=== PATIENT | female | born 1955 | race Caucasian/White ===

== ENCOUNTER → 2020-06-09 12:16 | Outpatient (BNVA) | payer MEDICARE, SELFPAY | PROVIDERS: PCP Internal Medicine; Visit Provider Anesthesiology | DX: G89.4 Chronic pain syndrome (principal); N94.818 Other vulvodynia; M79.609 Pain in unspecified limb | CPT/HCPCS: 99212 ==

== ENCOUNTER 2020-07-01 08:12 | Day surgery (SDC) | payer MEDICARE, SELFPAY ==
[2020-06-27 11:48] VITALS: BMI 23.6
--- NOTE | 2020-06-30 08:59 | HO.ANESPROP2 ---
Documented by User: Disha Mcney 06/30/20 09:04 HPI - Anesthesia Eval Consult details Narrative: 65yo F for Intrathecal Drug Delivery Implant PMFSH Past Medical History Medical History Chronic pain syndrome Idiopathic vulvodynia Maxillary sinus cyst Pain in unspecified limb Vulvodynia Surgical History Surgical History History of Hx of exploratory laparotomy Social History Social History Are you a primary career professional to a significant other at home: No Do you presently have visiting nurse or other home services: No Smoking Status: Never smoker Use of substances other than those prescribed or required for medical reasons: No Have you been hit, kicked, punched, or otherwise hurt by someone within the past year? If so, by whom?: No Advance Directives: No Advance Directives Information Provided: No Advance Directives on File: No Meds Allergies Allergy/AdvReac Type Severity Reaction Status Date / Time No Known Allergies Allergy Verified 07/01/20 08:20 Home Medications Medication Instructions Recorded Confirmed Type zolpidem 1 tab PO BEDTIME PRN 06/27/20 06/27/20 History Probiotic PO DAILY 07/01/20 History Exam Exam Date and Time: June 30, 2020 0859 Height,Weight and Vital Signs: Height 5 ft 5 in Weight 64.41 kg Assessment and Plan Assessment Anesthesia Assessment: Chart Reviewed Documented by User: Luis Silva MD 07/01/20 09:39 FOR[facility]LY [facility], [facility] Past Medical History Medical History Chronic pain syndrome Idiopathic vulvodynia Maxillary sinus cyst Pain in unspecified limb Vulvodynia Surgical History Surgical History History of Hx of exploratory laparotomy Social History Social History Are you a primary career professional to a significant other at home: No Do you presently have visiting nurse or other home services: No Smoking Status: Never smoker Use of substances other than those prescribed or required for medical reasons: No Have you been hit, kicked, punched, or otherwise hurt by someone within the past year? If so, by whom?: No Advance Directives: No Advance Directives Information Provided: No Advance Directives on File: No Meds Allergies Allergy/AdvReac Type Severity Reaction Status Date / Time No Known Allergies Allergy Verified 07/01/20 08:20 Home Medications Medication Instructions Recorded Confirmed Type zolpidem 1 tab PO BEDTIME PRN 06/27/20 06/27/20 History Probiotic PO DAILY 07/01/20 History Exam Airway Mallampati Class: I TM Dist: >3cm Neck ROM: Full Loose/Missing/Broken Teeth: No Heart: rrr Lungs: nl Other: ao Assessment and Plan Assessment Anesthesia Assessment: Anesthesia Plan Discussed and Chart Reviewed Final Anesthetic Review NPO: Yes ASA Class: II Final Preanesthetic Review: No Changes in Pt Med Stat, Meds/Allgs Chart Reviewed, Consent Obtained/Reviewed and Anes Risks/Benef Reviewed Patient Risk: Intermediate Procedure Risk: Low Anesthetic Plan Anesthetic Plan: GA Disposition: Standard PACU
[2020-07-01] VITALS (14 sets, daily range): BP systolic 96–132; BP diastolic 50–77; PULSE 68–83; RESP 16–18; TEMP 36.1–37.1; O2SAT 97–100
--- NOTE | 2020-07-01 07:48 | MHC.SHP ---
Pre-Procedural Eval Section B Chief Complaint: Vulvodynia, Chronic Pain Details of Present Illness: Significant pelvic pain and vulvodynia significant pain related to widespread polyneuropathy. Relevant Family History (Specify if Yes): No Relevant Social History: Other (specify) ( Unknown) Present Medications: see Short Stay Collaborative assessment Medical History: No relevant PMH ( ) History of Previous Operations: No relevant previous surgery Allergies: Allergies Allergy/AdvReac Type Severity Reaction Status Date / Time No Known Allergies Allergy Verified 06/27/20 11:35 Plan Patient has been examined and remains a candidate for the planned procedure
--- NOTE | 2020-07-01 07:50 | P.OP_ITS ---
Operative Note Operative Note Date of Service: 07/01/20 Narrative: Risks benefits side effects of intrathecal drug delivery system pain pump implantation were discussed before the surgery with the patient. Informed consent was obtained. She is not taking any NSAIDs currently. The patient came to the operating room on the stretcher, ASA monitors were applied . The general anesthesia was induced patient was transfered prone on the OR table. All PP were protected, padded. Time-out was performed delineating correct site side of the procedure, risk of fire, need of antibiotics risk of DVT, administration of the local anesthetic with doses and concentrations. the patient's entire back was prepped with chloroprep and draped with full body drape including ioban film. Sterilely drape C-arm was brought over the OR field and square pictures of the L1, L2, L3 vertebrae were demonstrated on the screen, the positions of the patient SCS leads were noted. the entrance point for the catheter was chosen as the L2-L3 interspace. In the left paramedian fashion 1 cm away from the midline to the left 5 cm vertical skin incision was made with #10 scalpel. The incision was widened with the wheatlander retractors and deepened with electrocautery. Thorough hemostasis was obtained using electrocautery and 3-0 polisorb sutures. the prevertebral fascia was freed from overlaying tissues. After that 100 mm introducer spinal 18 g needle was incerted under x-ray guidance in the projection of the LEFT L3 pedicle. The needle advanced under the x-ray guidance with intemitteny A-P and lateral pictures toward the spinal canal. When on the lateral view the needle entered the spinal canal the stylet was removed and the clear flow of the CSF was obtain through the needle hub. Intrathecal Ascenda catheter was inserted through the needle and advanced under the x-ray guidance toward the T10 vertebral body projection.Attempts to advance the catheter higher were met with resistance and the catheter was bending. the decision was made to leave the catheter at T10 pos ition. The stylet was removed from the catheter and clear flow of CSF fluid straw colored and clear was observed coming from the catheter. Pursestring suture using Tycron 2.0 was used to surround the entrance point of the needle. And pursestring suture after that was tied. The needle was withdrawn from the tissues care was taken to not to dislodge the tip of the catheter from the T10 position. Anchoring device was dislodged on the body of the catheter and advanced to were the prevertebral fascia. It was dislodged on the body of the catheter and then anchoring device was sutured with 4 interrupted Tycron sutures to the prevertebral fascia. After that the thorough irrigation of the wound was performed and wound was packed with bacitracin soaked 4 x 4. Attention then was concentrated on the patient's right buttock. Sterilely draped C-arm was brought over the operative feel again and position of the patient's iliac crest on the right was demonstrated on the screen. 2 cm below the projection of the iliac crest to the skin of the local anesthetic bupivacaine was injected in the linear horizontal fashion. After that Nine cm incision was performed in patient's right buttock alongside the injected line. Thorough hemostasis was obtained using cautery device. After that the wound was widened and made 2.5 cm deep until the muscular fascia was seen. The wound was extended medially and laterally as well as caudally and cranially to form the space to accommodate the pump. Thorough hemostasis was performed. The wound was irrigated with bacitracin containing normal saline and then epidural introducer needle was used to connect both wounds and dislodge the intrathecal catheter into the side wound. The catheter was trimmed appropriately after that and sutureless connection device was mounted on the catheter. After that sutureless connection device was connected to the pump. Aspiration of the side port of the pump revealed clear flow of CSF. Two anchoring 0-0 etibone sutures were applied in most superior medial superior lateral and inferior lateral corners of the wound . After that the sutures were connected to the break it is on the body of the pump, intrathecal catheter was gathered behind the body of the pump and pump was dislodged into the wound. After that the anchoring sutures were tied. Thorough irrigation was performed again in both wounds. Thorough hemostasis was verified. 0 polisorb sutures were used to close both wounds, 2-0 suture of the same nature were used to approximate the skin. nylon 3.0 sutures were applied to the skin line Steri-Strips were applied to suture lines with the mastisol glue. Sterile dressing with sterile 4x4s was performed, abdominal binder was applied. Upon completion of the procedure patient was awaken extubated and taken outside of the operating room to recovery room where SHE recovered uneventfully. SHE went home without immediate complication.
--- NOTE | 2020-07-01 08:02 | PM.OP ---
Brief Operative Note Date of Service: 07/01/20 Procedure: implantation of ITDD Implants: Ascenda catheter and SynchroMed 2 pain pump Surgeon: Sedrick Reddy MD Anesthesia: GETA Estimated blood loss (mL): 50 Pathology: none sent Condition: stable Disposition: PACU
--- NOTE | 2020-07-01 08:06 | MHC.SHP ---
Pre-Procedural Eval Section B Chief Complaint: Vulvodynia, Chronic Pain Details of Present Illness: pelvic pain, chronic pain syndrome, vulvodynia. Relevant Family History (Specify if Yes): No Relevant Social History: None Present Medications: see Short Stay Collaborative assessment Medical History: No relevant PMH History of Previous Operations: No relevant previous surgery Allergies: Allergies Allergy/AdvReac Type Severity Reaction Status Date / Time No Known Allergies Allergy Verified 06/27/20 11:35 Review of Systems Sugical H&P ROS: Negative: Constitution, Cardiovascular, Respiratory, Neurological, Psychiatric, Hem-Onc, Allergic/Immunologic, Gastrointestinal, Genitourinary, Musculoskeletal, Integumentary, Endocrine and Eyes/Ears/Nose/Throat Exam Surgical H&P Exam: Normal: HEENT, Normal: Heart, Normal: Lungs, Normal: Extremities, Normal: Abdomen, Normal: Skin and Normal: Neurological Plan Diagnosis/Plan: Unchanged Patient has been examined and remains a candidate for the planned procedure
--- NOTE | 2020-07-01 08:12 | FL_ITS ---
EXAMINATION: XR FLUOROSCOPY WITH IMAGES CLINICAL INFORMATION: Intrathecal drug delivery implant COMPARISON: Fluoroscopic spot views lumbar spine 04/05/2020. TECHNIQUE: Fluoroscopy performed by Dr. Sedrick Reddy. Fluoroscopy time: 0.4 minutes DAP: 4.74 Gycm2 Images: 3 FINDINGS: There is catheter or guidewire overlying the lower thoracic spinal canal with tip at level of T10. FL/FL guidance in OR IMPRESSION: Fluoroscopy for pain management procedure.
[2020-07-01] MEDS: Lactated Ringers 1,000 ML 100 ML IVCONT (08:40)
[2020-07-01] MEDS: ondansetron HCL 4 MG/2 ML VIAL IVPUSH (12:10)
[2020-07-01] MEDS: HYDROmorphone HCl 0.5 MG/0.5 ML SYRINGE 0.25 MG IVPUSH (12:48)
--- NOTE | 2020-07-01 14:36 | HO.POSTANES ---
Post Anesthesia Evaluation Post Anesthesia Evaluation Vital Signs: Vital Signs Temp Pulse Resp BP Pulse Ox 07/01/20 13:18 97.0 F 81 18 110/65 99 07/01/20 13:07 82 18 129/57 L 99 07/01/20 12:52 83 18 105/56 L 97 07/01/20 12:48 18 07/01/20 12:36 68 18 96/58 L 99 07/01/20 12:21 74 18 100/56 L 100 07/01/20 12:06 77 18 116/67 100 07/01/20 12:01 79 16 107/69 100 07/01/20 11:56 77 18 110/50 L 100 07/01/20 11:51 80 18 103/63 100 07/01/20 11:49 97.0 F 82 16 108/70 99 07/01/20 08:22 98.7 F 81 16 132/77 98 Anesthesia: General Endotracheal-GETA Mental Status: Awake Pain Control: Satisfactory Nausea/Vomiting: None Hydration: Adequate Anesthesia-Related Issues: No Anes. Related Issues
== END 2020-07-01 14:30 | disposition home or self-care (01) ==
PROVIDERS: PCP Internal Medicine; Visit Provider Anesthesiology
PROC: (CPT 62350; principal; 2020-07-01 09:00)
DX: N94.818 Other vulvodynia (principal); G89.4 Chronic pain syndrome; M79.605 Pain in left leg; M79.604 Pain in right leg
CPT/HCPCS: 62350; 62362; C1772; J0131; J0690; J1170; J2250; J2405; J3010; J3370

== ENCOUNTER → 2020-07-06 11:58 | Outpatient (BNVA) | payer MEDICARE, SELFPAY | PROVIDERS: PCP Internal Medicine; Referring Provider Internal Medicine; Visit Provider Anesthesiology | DX: N94.819 Vulvodynia, unspecified (principal); G89.4 Chronic pain syndrome; G97.1 Other reaction to spinal and lumbar puncture; M79.609 Pain in unspecified limb | CPT/HCPCS: 99212 ==

== ENCOUNTER 2020-07-12 06:41 | Outpatient (REF) | payer MEDICARE, SELFPAY ==
--- NOTE | 2020-07-12 13:17 | MR_ITS ---
EXAMINATION: MR THORACIC SPINE WITHOUT AND WITH CONTRAST CLINICAL INFORMATION: Meningitis. Pain pump placed 10 days prior. Nausea. Headache. COMPARISON: None available. TECHNIQUE: MRI of the thoracic spine was obtained using routine sequences following the administration of 6.5 mL of Gadavist intravenous contrast. FINDINGS: Minimal degenerative stepwise anterolistheses from T2-T5. Otherwise, normal anatomic alignment. There are enhancing T2 hyperintense lesions within the T9 and T10 vertebral bodies as well as the T9 left-sided lamina. Minimal intrinsic T1 shortening associated with the lesion in the T10 vertebral body. Mild to moderate degenerative disc disease from T3-T11. Associated mixed Modic type discogenic endplate changes including minimal Modic type I discogenic edema at T3-T4, T4-T5, T5-T6, and T8-T9. No additional suspicious marrow edema/enhancement. The vertebral body heights are largely maintained. No significant abnormalities of the thoracic spinal cord. The conus medullaris terminates at the level of L2. No demonstrated subdural/epidural collection. Mild subcutaneous soft tissue edema of the lumbar spine. No demonstrated paraspinal soft tissue fluid collection. Otherwise, no significant abnormalities of the paraspinal musculature. Trace right-sided pleural effusion. Otherwise, limited evaluation of the intrathoracic structures without significant abnormalities. Dependently layering gallstones without demonstrated pericholecystic inflammation. There is a nonenhancing 4 cm T2 hyperintense cyst in the right hepatic lobe. Bilateral subcentimeter T2 hyperintense renal cysts. The descending thoracic aorta is of normal contour and caliber. No cerebellar tonsils appear normally positioned on plant puller imaging. AXIAL SPINAL LEVELS: Minimal posterior disc herniations throughout the thoracic spine. Moderate degenerative facet arthropathy of the lower thoracic spine. No evidence of spinal canal or neural foraminal stenosis. MR/MR thoracic spine wo/w con IMPRESSION: 1. Mild multilevel degenerative spondyloarthropathy of the thoracic spine. No spinal canal or neural foraminal stenosis. No demonstrated epidural/subdural collection. No demonstrated intrathecal abnormal enhancement. 2. There are nonspecific, intraosseous, enhancing lesions at T9 and T10. A small amount of intrinsic T1 shortening within the lesion at T10 indicates that these may represent atypical hemangiomas. However, these lesions are not fully characterized on this exam. Correlation with prior imaging if available would help to determine the chronicity of these lesions. Otherwise, follow-up is recommended to establish stability. Nuclear medicine bone scan could be considered to exclude the possibility of additional osseous lesions.
[2020-07-12 13:35] LABS: MANUAL DIFF FLAG NO
[2020-07-12 13:37] LABS: Alanine Aminotransferase 22 U/L (0-31); Albumin Level 4.3 g/dL (3.5-5.0); Alkaline Phosphatase 59 U/L (39-117); Anion Gap 12 (12-20); Aspartate Amino Transferase 17 U/L (5-31); Bilirubin Total 0.4 mg/dL (0.0-1.0); Blood Urea Nitrogen 16 mg/dL (9-16); C Reactive Protein 0.25 mg/dL (< or = 0.50); Calcium 9.5 mg/dL (8.4-10.2); Carbon Dioxide 29 mmol/L (22-29); Chloride 104 mmol/L (96-108); Estimated Glomerular Filt Rate > 60; Glucose Random 105 mg/dL (60-115); Potassium 4.3 mmol/l (3.3-5.1); Sodium 141 mmol/L (135-145)
[2020-07-12 13:48] LABS: Basophils Percent Auto 0.5 % (0-2); Eosinophils Absolute Auto 0.1 X10*3/uL (0.0-0.4); Eosinophils Percent Auto 1.3 % (0-4); Hemoglobin 12.7 g/dl (12.0-16.0); Imm Gran Abs Auto 0.02 X10*3/uL (0.00-0.03); Imm Gran Pct Auto 0.3 % (0.0-0.4); Lymphocytes Absolute Auto 2.4 X10*3/uL (1.2-4.9); Lymphocytes Percent Auto 38.7 % (20-40); Mean Corpuscular HGB Conc 33.4 g/dl (31.0-35.0); Mean Corpuscular Hemoglobin 29.8 pg (27.0-33.0); Mean Corpuscular Volume 89.2 fL (80-98); Monocytes Absolute Auto 0.5 X10*3/uL (0.1-1.2); Monocytes Percent Auto 7.6 % (2-11); Neutrophils Absolute Auto 3.1 X10*3/uL (2.0-8.3); Neutrophils Percent Auto 51.6 % (45-73); Platelet Count 414 X10*3/uL (160-400); Red Blood Count 4.26 X10*6/uL (4.20-5.50); Red Cell Distribution Width 12.5 % (11.0-16.0); White Blood Count 6.1 X10*3/uL (4.8-10.8)
[2020-07-12 14:34] LABS: Erythrocyte Sedimentation Rate 9 MM/HR (0-20)
--- NOTE | 2020-07-12 14:57 | FL_ITS ---
EXAMINATION: XR FLUOROSCOPY WITH IMAGES CLINICAL INFORMATION: G89.4 - Chronic pain syndrome COMPARISON: Fluoroscopic spot views spine 07/01/2020, 04/05/2020 TECHNIQUE: Fluoroscopy performed by Mela Cox NP. Fluoroscopy time: 0.1 minutes DAP: 0.8 Gycm2 Images: 1 FINDINGS: There is a pump device overlying the right iliac crest. FL/FL guidance in treatment room IMPRESSION: Fluoroscopy for pain management procedure.
== END 2020-07-12 23:59 | disposition home or self-care (01) ==
LOC: HO.MRI 06:41
PROVIDERS: Visit Provider Anesthesiology
DX: N94.819 Vulvodynia, unspecified (principal); G89.4 Chronic pain syndrome; G03.9 Meningitis, unspecified; R32 Unspecified urinary incontinence; R33.8 Other retention of urine; M54.5 Low back pain; Z97.8 Presence of other specified devices
CPT/HCPCS: 36415; 62370; 72157; 80053; 85025; 85652; 86140; 87015; 87070; 87071; 87205; 99212; A9585; Q9967

== ENCOUNTER → 2020-07-14 11:28 | Outpatient (BNVA) | payer MEDICARE, SELFPAY | PROVIDERS: PCP Internal Medicine; Referring Provider Internal Medicine; Visit Provider Anesthesiology | DX: N94.819 Vulvodynia, unspecified (principal); G89.4 Chronic pain syndrome; M79.609 Pain in unspecified limb | CPT/HCPCS: Q3014 ==

== ENCOUNTER 2020-07-18 14:58 | Emergency (ER) | payer MEDICARE, SELFPAY ==
[2020-07-18 15:06] VITALS: BP 134/92; PULSE 85; RESP 18; TEMP 36.8; O2SAT 98; BMI 23.3
== END 2020-07-18 19:15 | disposition left against medical advice (07) ==
PROVIDERS: Emergency Provider Internal Medicine; PCP Internal Medicine
DX: R51.9 Headache, unspecified (principal)
CPT/HCPCS: 99282

== ENCOUNTER 2020-07-20 15:28 | Outpatient (REF) | payer MEDICARE, SELFPAY ==
--- NOTE | 2020-07-20 15:34 | CT_ITS ---
EXAMINATION: CT LUMBAR SPINE WITH CONTRAST CLINICAL INFORMATION: Infection/inflammatory reaction of prosthetic device. COMPARISON: None available. TECHNIQUE: Multidetector helical imaging of the lumbar spine was obtained following the administration of 85 mL Omnipaque 350 intravenous contrast. Multiple axial reformats and coronal/sagittal reconstructions were created the technologist workstation for review. DLP: 817 mGy-cm FINDINGS: Subcutaneous pump with microcatheter entering the spinal canal at the level of L2-L3 directed superiorly along the left lateral aspect of the canal. Minimal degenerative grade 1 anterolisthesis of L3 on L4. Otherwise, normal anatomic alignment. No evidence of acute fracture or traumatic subluxation. The vertebral body heights are maintained. Moderate degenerative disc disease at L3-L4. Mild loss of disc height at L2-L3 and L4-L5. No suspicious lytic or sclerotic osseous lesions. No demonstrated evidence of epidural collection. Prominent Tarlov cysts at the level of S3. Mild subcutaneous soft tissue edema in the soft tissues of the lower back along the catheter tract without demonstrated discrete fluid collection. Otherwise, no abnormalities of the paraspinal musculature. Limited evaluation of the intra-abdominal structures is notable for a 4.2 x 3.2 cm cyst in the right hepatic lobe. Multiple small hypoattenuating lesions in both kidneys. 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 The remaining lesions are subcentimeter are too small to fully characterize by CT. No additional significant abnormalities of the intra-abdominal structures. Small bilateral fat-containing inguinal hernias. The abdominal aorta is of normal contour and caliber. AXIAL SPINAL LEVELS: L1-L2: Shallow diffuse disc bulge. There is mild bilateral facet joint arthropathy. There is no neural foraminal stenosis. There is no demonstrated spinal canal stenosis. L2-L3: Mild to moderate diffuse disc bulge. There is moderate bilateral facet joint arthropathy. There is mild bilateral neural foraminal stenosis. There is no demonstrated spinal canal stenosis. L3-L4: Moderate diffuse disc bulge. There is moderate to severe bilateral facet joint arthropathy. There is moderate bilateral neural foraminal stenosis. There appears to be moderate spinal canal stenosis exacerbated by prominent dorsal epidural lipomatous tissue. L4-L5: Moderate diffuse disc bulge. There is severe bilateral facet joint arthropathy. There is mild bilateral neural foraminal stenosis. There appears to be mild spinal canal stenosis exacerbated by prominent dorsal epidural lipomatous tissue. L5-S1: Mild diffuse disc bulge. There is severe right and mild left facet joint arthropathy. There is mild right and no left neural foraminal stenosis. There is no demonstrated spinal canal stenosis. CT/CT lumbar spine w con IMPRESSION: A catheter related to a subcutaneous pump system enters the spinal canal the level of L2-L3 and courses superiorly along the left lateral aspect of the spinal canal. No demonstrated epidural collection. Mild subcutaneous edema along the tract of the catheter without demonstrated discrete collection. No acute fracture or traumatic subluxation of the lumbar spine. Moderate multilevel degenerative spondyloarthropathy of the lumbar spine as described in detail above. Most notably on this limited exam without intrathecal contrast, there appears to be moderate L3-L4 and mild L4-L5 spinal canal stenoses. Moderate neural foraminal stenosis at L3-L4.
[2020-07-20] MEDS: iohexoL 350 MG/ML 100 ML INFUS..BTL IV (16:19)
== END 2020-07-20 15:29 | disposition home or self-care (01) ==
LOC: HO.CT 15:28
PROVIDERS: PCP Internal Medicine; Visit Provider Nurse Practitioner Family
DX: R51.9 Headache, unspecified (principal); T85.79XA Infection and inflammatory reaction due to other internal prosthetic devices, implants and grafts, initial encounter
CPT/HCPCS: 72132; Q9967

== ENCOUNTER → 2020-08-01 08:30 | Outpatient (BNVA) | payer MEDICARE, SELFPAY | PROVIDERS: PCP Internal Medicine; Visit Provider Anesthesiology | DX: N94.818 Other vulvodynia (principal); G89.4 Chronic pain syndrome; M79.609 Pain in unspecified limb | CPT/HCPCS: Q3014 ==

== ENCOUNTER 2020-08-02 15:29 | Outpatient (REF) | payer MEDICARE, SELFPAY | END 2020-08-02 15:30 | disposition home or self-care (01) | LOC: HO.RADIR 15:29 | PROVIDERS: Visit Provider Anesthesiology | DX: N94.818 Other vulvodynia (principal); G89.4 Chronic pain syndrome; M79.609 Pain in unspecified limb | CPT/HCPCS: 62370; Q3014 ==

== ENCOUNTER → 2020-08-10 11:59 | Outpatient (BNVA) | payer MEDICARE, SELFPAY | PROVIDERS: PCP Internal Medicine; Visit Provider Anesthesiology | DX: G89.4 Chronic pain syndrome (principal); N94.818 Other vulvodynia | CPT/HCPCS: 62368; 99211 ==

== ENCOUNTER 2020-08-16 05:26 | Outpatient (REF) | payer MEDICARE, SELFPAY ==
--- NOTE | 2020-08-16 11:43 | FL_ITS ---
EXAMINATION: FLUOROSCOPY AND CT THORACIC MYELOGRAM CLINICAL INFORMATION: Chronic pain syndrome. COMPARISON: CT lumbar spine 07/20/2020. TECHNIQUE: A single fluoroscopy image was obtained of the thoracolumbar spine. Intrathecal contrast was injected by Dr. Sedrick Reddy and axial 3 mm images of thoracic spine were obtained from C7 vertebra to L2 vertebra. Subsequently 2 mm thin coronal and sagittal images of thoracic spine were obtained. FINDINGS: On the sagittal reconstructed images there is maintained thoracic kyphosis. The vertebral heights and alignment are normal. There is minimal loss of disc height throughout the thoracic spine with mild ventral spondylosis and mid and lower dorsal spine. The upper thoracic spine thecal sac is not well opacified. The mid and lower thoracic thecal sac is well opacified. The cord caliber is normal within the mid and lower dorsal spine. The conus appears normal terminating at the L1-L2 disc level. There is a small microcatheter extending through the left thecal sac at the L2 through T11 vertebra where it swings posteriorly and to the right. The catheter terminates at T10 vertebra. The thecal sac is capacious within the mid and lower thoracic spine. No lytic or sclerotic process seen. Visualized lung bases are clear. The paravertebral soft tissues are normal. The visualized lung bases are clear. FL/FL myelogram spine thoracic IMPRESSION: Opacified mid and lower thoracic thecal sac is capacious with normal size cord. Microcatheter inserted from the lower lumbar spine not in the [id number] terminates at T10 vertebra. There is no compromise of the thecal sac or any soft tissue mass at the tip of the microcatheter. No lytic or sclerotic process seen.
== END 2020-08-16 05:27 | disposition home or self-care (01) ==
LOC: HO.RADIR 05:26
PROVIDERS: Visit Provider Anesthesiology
DX: G89.4 Chronic pain syndrome (principal); N94.818 Other vulvodynia; G03.9 Meningitis, unspecified
CPT/HCPCS: 62303; Q9967

== ENCOUNTER 2020-08-16 09:16 | Day surgery (SDC) | payer MEDICARE, SELFPAY ==
[2020-08-16 10:14] VITALS: BMI 23.3
[2020-08-16 10:24] VITALS: BP 141/87; PULSE 80; RESP 16; TEMP 37; O2SAT 98
[2020-08-16 11:22] LABS: Prothrombin Time 11.4 SEC (10.8-13.0)
[2020-08-16 11:25] LABS: Partial Thromboplastin Time 32.9 SEC (24.1-38.0)
--- NOTE | 2020-08-16 11:48 | CT_ITS ---
EXAMINATION: FLUOROSCOPY AND CT THORACIC MYELOGRAM CLINICAL INFORMATION: Chronic pain syndrome. COMPARISON: CT lumbar spine 07/20/2020. TECHNIQUE: A single fluoroscopy image was obtained of the thoracolumbar spine. Intrathecal contrast was injected by Dr. Sedrick Reddy and axial 3 mm images of thoracic spine were obtained from C7 vertebra to L2 vertebra. Subsequently 2 mm thin coronal and sagittal images of thoracic spine were obtained. FINDINGS: On the sagittal reconstructed images there is maintained thoracic kyphosis. The vertebral heights and alignment are normal. There is minimal loss of disc height throughout the thoracic spine with mild ventral spondylosis and mid and lower dorsal spine. The upper thoracic spine thecal sac is not well opacified. The mid and lower thoracic thecal sac is well opacified. The cord caliber is normal within the mid and lower dorsal spine. The conus appears normal terminating at the L1-L2 disc level. There is a small microcatheter extending through the left thecal sac at the L2 through T11 vertebra where it swings posteriorly and to the right. The catheter terminates at T10 vertebra. The thecal sac is capacious within the mid and lower thoracic spine. No lytic or sclerotic process seen. Visualized lung bases are clear. The paravertebral soft tissues are normal. The visualized lung bases are clear. CT/CT thoracic post myelogram IMPRESSION: Opacified mid and lower thoracic thecal sac is capacious with normal size cord. Microcatheter inserted from the lower lumbar spine not in the [id number] terminates at T10 vertebra. There is no compromise of the thecal sac or any soft tissue mass at the tip of the microcatheter. No lytic or sclerotic process seen.
[2020-08-16 12:43] VITALS: BP 128/77; PULSE 81; RESP 17; TEMP 37.1; O2SAT 96
--- NOTE | 2020-08-16 13:08 | PC.NURSE ---
patient resting tolerated po fluids well. [facility] Then once pump is reporgramed patient can be discharged. discharge instructions r/e mylogram reviewed with patient.
[2020-08-16 13:13] VITALS: BP 112/75; PULSE 97; RESP 18; O2SAT 99
== END 2020-08-16 13:50 | disposition home or self-care (01) ==
LOC: HO.SSS 09:17
PROVIDERS: PCP Internal Medicine; Visit Provider Radiology Diagnostic Radiology
DX: G03.9 Meningitis, unspecified (principal); M79.609 Pain in unspecified limb; G89.4 Chronic pain syndrome; N94.818 Other vulvodynia
CPT/HCPCS: 36415; 72128; 85610; 85730; Q9967

== ENCOUNTER 2020-08-23 06:14 | Outpatient (REF) | payer MEDICARE, SELFPAY | END 2020-08-23 06:15 | disposition home or self-care (01) | LOC: HO.RADIR 06:14 | PROVIDERS: Visit Provider Anesthesiology | DX: G89.4 Chronic pain syndrome (principal); M79.604 Pain in right leg; M79.605 Pain in left leg; N94.819 Vulvodynia, unspecified; N94.818 Other vulvodynia | CPT/HCPCS: 99212 ==

== ENCOUNTER → 2020-09-05 10:22 | Outpatient (BNVA) | payer MEDICARE, SELFPAY | PROVIDERS: PCP Internal Medicine; Visit Provider Anesthesiology | DX: G89.4 Chronic pain syndrome (principal); N94.819 Vulvodynia, unspecified; N94.818 Other vulvodynia | CPT/HCPCS: Q3014 ==

== ENCOUNTER 2020-09-20 07:00 | Outpatient (REF) | payer MEDICARE, SELFPAY | END 2020-09-20 07:01 | disposition home or self-care (01) | LOC: HO.RADIR 07:00 | PROVIDERS: Visit Provider Anesthesiology | DX: G89.4 Chronic pain syndrome (principal); N94.818 Other vulvodynia; M79.609 Pain in unspecified limb | CPT/HCPCS: 62370 ==

== ENCOUNTER 2020-10-14 18:25 | Observation (INO) | payer MEDICARE, SELFPAY ==
[2020-10-10 10:13] VITALS: BMI 23.3
[2020-10-14] VITALS (18 sets, daily range): BP systolic 97–144; BP diastolic 63–98; PULSE 66–89; RESP 14–20; TEMP 36–36.5; O2SAT 95–100
--- NOTE | 2020-10-14 09:48 | P.HPSUR_ITS ---
Pre-Procedural Eval Section A The patient is an INPATIENT: No Changes since office visit: Yes Patient answered all questions The History & Physical has been completed within 30 days and I have reviewed it.: No Section B Chief Complaint: chronic pain Details of Present Illness: patient c/o pain in the area of pump and catheter implant, radiating up the lumbar and thoracic spine and in intercostal 5-6 bi lateral distribution. Cultures are negative, MRI is negative, multiple IT meds were tried with no effect. The patient insists on pump explantation. Relevant Family History (Specify if Yes): No Relevant Social History: None Present Medications: see Short Stay Collaborative assessment Medical History: Significant History (chronic pelvic pain.) History of Previous Operations: Relevant previous surgery/procedure and date(s) Allergies: Allergies Allergy/AdvReac Type Severity Reaction Status Date / Time No Known Allergies Allergy Verified 10/14/20 09:33 Review of Systems Sugical H&P ROS: Negative: Constitution, Cardiovascular, Respiratory, Neurological, Psychiatric, Hem-Onc, Allergic/Immunologic, Gastrointestinal, Genitourinary, Musculoskeletal, Integumentary, Endocrine and Eyes/Ears/Nose/Throat Exam Surgical H&P Exam: Normal: HEENT, Normal: Heart, Normal: Lungs, Normal: Extremities, Normal: Abdomen, Normal: Skin and Normal: Neurological Plan Diagnosis/Plan: Unchanged I have reviewed the history and physical and performed a pertinent physical examination on my patient. No changes have occurred unless specified.
[2020-10-14 09:49] LABS: COVID-19 Test Negative (Negative)
--- NOTE | 2020-10-14 09:55 | PC.NURSE ---
pt lungs wheezing noted bilat. informed dr miles. updraft ordered/received. pt sherman well. lungs clear bilat no wheezing heard at this time. sats 98% r/a. resp easy and reg. pt resting quietly. spoke with dr romero pt unsure to have procedure done stated only having it because thats what the father wanted. attentive listening/ offered reassurance. dr romero spoke with pt at the bedside.....ok with her decision to go forward.
--- NOTE | 2020-10-14 11:42 | HO.ANESPROP2 ---
HPI - Anesthesia Eval Consult details Narrative: 65 F p/f removal of ITP due to pocket pain PMFSH Active Problems Active Problems: All Active Problems (Updated 10/10/20 @ 10:08 by Belia Rosario) Arachnoiditis (Acute) Infection of drug delivery pump (Acute) Abnormal MRI, spine (Acute) Headache (Acute) Pain in unspecified limb (Acute) Chronic pain syndrome (Acute) Idiopathic vulvodynia (Acute) Vulvodynia (Acute) Past Medical History Medical History Chronic back pain Chronic pain syndrome Idiopathic vulvodynia Pain in unspecified limb Vulvodynia Surgical History Surgical History History of Hx of exploratory laparotomy S/P insertion of intrathecal pump Social History Social History Housing Other:: Mobile home Are you a primary patient care technician instructor to a significant other at home: No Smoking Status: Former smoker Smoking Quit Date: 40 yrs ago Use of substances other than those prescribed or required for medical reasons: No Have you been hit, kicked, punched, or otherwise hurt by someone within the past year? If so, by whom?: No Advance Directives: No Advance Directives Information Provided: No Advance Directives on File: No Recently lost weight without trying: No Meds Allergies Allergy/AdvReac Type Severity Reaction Status Date / Time No Known Allergies Allergy Verified 10/14/20 09:33 Home Medications Medication Instructions Recorded Confirmed Last Taken Type acetaminophen 1,000 mg PO QID PRN 10/10/20 10/10/20 Unknown History baclofen 10/10/20 10/10/20 Unknown History ibuprofen 200 mg PO Q6H PRN 10/10/20 10/10/20 Unknown History Exam Exam Date and Time: October 14, 2020 1142 Height,Weight and Vital Signs: Height 5 ft 5 in Weight 63.503 kg Last Vital Signs Temp 97.7 F 10/14/20 09:33 Pulse 76 10/14/20 09:33 Resp 18 10/14/20 09:33 BP 120/71 10/14/20 09:33 Pulse Ox 99 10/14/20 09:33 Pertinent Lab Results Pertinent Lab Results: Laboratory Tests 10/14/20 09:15 COVID-19 (GERDA) Negative COVID-19 Clin Com See Note Airway Mallampati Class: II TM Dist: >3cm Neck ROM: Full Loose/Missing/Broken Teeth: No Heart: RRR Lungs: NL Assessment and Plan Assessment Anesthesia Assessment: Anesthesia Plan Discussed Final Anesthetic Review NPO: Yes ASA Class: II Final Preanesthetic Review: No Changes in Pt Med Stat, Meds/Allgs Chart Reviewed, Consent Obtained/Reviewed and Anes Risks/Benef Reviewed Patient Risk: Low Procedure Risk: Intermediate Anesthetic Plan Anesthetic Plan: GA Disposition: Standard PACU
--- NOTE | 2020-10-14 12:23 | PM.OP ---
Brief Operative Note Date of Service: 10/14/20 Pre-op diagnosis: pain in the pain pump implantation site. Post-op diagnosis: same Procedure: removal of intrathecal pain pump and intrathecal catheter Implants: none Surgeon: Sedrick Reddy MD Anesthesia: GETAmanda Estimated blood loss (mL): 20 Condition: stable Disposition: observation
[2020-10-14] MEDS: ondansetron HCL 4 MG/2 ML VIAL IVPUSH (12:47)
[2020-10-14] MEDS: Baclofen 10 MG TABLET PO ×2 (12:48→21:43)
[2020-10-14] MEDS: HYDROmorphone HCl 0.5 MG/0.5 ML SYRINGE 0.25 MG IVPUSH (13:33)
--- NOTE | 2020-10-14 18:23 | PM.IMHP ---
History of Present Illness Date of Service: 10/14/20 Chief Complaint: back pain pelvic pain 65-year-old female with chronic back pain and pelvic pain being managed by Dr. [facility] , patient has intrathecal pump placed before and medicines were being adjusted through the pump by [facility], patient continues to have pain patient was scheduled to remove intrathecal pump today, intrathecal pump was removed by Dr. reddy, post procedure patient continues to have pain and was having headache, patient was admitted to observation for intractable pain for IV pain medication , patient seen and examined at bedside patient denies any medical problems currently reporting pain in her back and pelvic area , patient also reported headache, denies any nausea vomiting fever chills, no focal week Review of Systems Constitutional: Constitutional: Denies weakness Cardiovascular: Cardiovascular: Denies chest pain and Denies dyspnea Respiratory: Respiratory: Denies dyspnea Gastrointestinal: Gastrointestinal: Denies heartburn and Denies vomiting Musculoskeletal: Musculoskeletal: Reports back pain Neurologic: Denies weakness [facility] Medical History Chronic back pain Chronic pain syndrome Idiopathic vulvodynia Pain in unspecified limb Vulvodynia Family History (Updated 10/14/20 @ 18:29 by Bruno Zhu MD) Other Hypertension Surgical History History of Hx of exploratory laparotomy S/P insertion of intrathecal pump Social History Household Members: None Housing: House Smoking Status: Former smoker Years Smoked: 5 Meds Allergies Allergy/AdvReac Type Severity Reaction Status Date / Time No Known Allergies Allergy Verified 10/14/20 09:33 Active Medications: Current Medications Generic Name Dose Route Start Last Admin Trade Name Freq PRN Reason Stop Dose Admin Acetaminophen 650 mg 10/14/20 18:08 Acetaminophen 325 Mg Tablet PO Q6H PRN Pain, Mild (Pain Scale 1-3) Baclofen 10 mg 10/14/20 15:00 10/14/20 12:48 Baclofen 10 Mg Tablet PO 10 mg TID JUDE Administration Docusate Sodium 100 mg 10/14/20 18:08 Docusate Sodium 100 Mg Capsule PO DAILY PRN Constipation Hydromorphone HCl 1 mg 10/14/20 18:20 Hydromorphone Hcl 1 Mg/Ml Syringe IVPUSH Q4H PRN Pain, Severe (Pain Scale 7-10) Ondansetron HCl 4 mg 10/14/20 18:08 Ondansetron Hcl 4 Mg/2 Ml Vial IVPUSH Q8H PRN Nausea and Vomiting Oxycodone HCl 5 mg 10/14/20 18:21 Oxycodone Hcl Immed Release 5 Mg Tablet PO Q6H PRN Pain, Severe (Pain Scale 7-10) Sodium Chloride 3 ml 10/15/20 00:00 0.9 % Sodium Chloride Flush 3 Ml Syringe IVFLUSH QSHIFT [facility] Physical Exam Vital Signs and Narrative: Vital Signs: Last Vital Signs Temp 97.4 F 10/14/20 16:25 Pulse 74 10/14/20 16:25 Resp 15 10/14/20 16:25 BP 129/63 10/14/20 16:25 Pulse Ox 95 10/14/20 16:25 Body Mass Index 23.3 Const: General: comfortable and no acute distress Orientation/consciousness: patient oriented x3 Eyes: General: appearance normal, both eyes and all related structures Chest: Chest palpation & inspection: normal inspection of the chest Resp: Effort & Inspection: normal respiratory effort Cardio: Heart sounds: S1 normal heart sound present and S2 normal heart sound present GI: Inspection: Yes normal to inspection Back/Spine/Pelvis: Other: Status post intrathecal catheter removed drain in place with some serosanguineous discharge Skin: General skin exam: no rashes or lesions noted Neuro: General: patient oriented x3 Motor exam (neuro): 5/5 motor strength present throughout Results Labs Labs: Laboratory Results - last 24 hr 10/14/20 09:15 COVID-19 (GERDA) Negative COVID-19 Clin Com See Note Assessment and Plan (1) Intractable pain: Status: Acute (2) Chronic pain syndrome: Status: Acute 65-year-old female status post intrathecal pump removal today admitted for uncontrolled pain postprocedure, Intractable pain s/p intrathecal pump removal headache Continue IV Dilaudid Continue p.o. pain medication Encourage caffeinated product Continue supportive care Zofran p.r.n. Insomnia Continue Ambien at at night DVT prophylax Venodyne
[2020-10-14] MEDS: HYDROmorphone HCl 1 MG/ML SYRINGE IVPUSH (19:00)
--- NOTE | 2020-10-14 21:37 | PC.NURSE ---
dose of Ambien 10 mg clarified with pharmacist,AMINAH to administer
[2020-10-14] MEDS: Zolpidem Tartrate 5 MG TABLET 10 MG PO (21:43)
[2020-10-15] VITALS (7 sets, daily range): BP systolic 94–139; BP diastolic 67–86; PULSE 62–77; RESP 18–20; TEMP 36.2–36.6; O2SAT 93–97
[2020-10-15] MEDS: 0.9 % Sodium Chloride Flush 3 ML SYRINGE IVFLUSH ×3 (02:30→14:51)
[2020-10-15] MEDS: Acetaminophen 325 MG TABLET 650 MG PO (03:02)
[2020-10-15] MEDS: oxyCODONE HCl Immed Release 5 MG TABLET PO (03:02)
--- NOTE | 2020-10-15 03:17 | PC.NURSE ---
patient slept first few hours of shift after being medicated by previous RN. Blood pressure low. Ok to give Oxycodone per hospitalist. Instructed to encourage PO fluids and patient is drinking. instructed to monitor BP. Patient reposistioned and resting. Dressing dry and intact and bulb drain with scant bloody drainage.
[2020-10-15 07:04] LABS: MANUAL DIFF FLAG NO
[2020-10-15 07:16] LABS: Basophils Percent Auto 0.2 % (0-2); Eosinophils Percent Auto 0.1 % (0-4); Hematocrit 39.3 % (37-47); Hemoglobin 13.2 g/dl (12.0-16.0); Imm Gran Abs Auto 0.03 X10*3/uL (0.00-0.03); Imm Gran Pct Auto 0.2 % (0.0-0.4); Lymphocytes Absolute Auto 2.4 X10*3/uL (1.2-4.9); Lymphocytes Percent Auto 19.4 % (20-40); Mean Corpuscular HGB Conc 33.6 g/dl (31.0-35.0); Mean Corpuscular Hemoglobin 29.8 pg (27.0-33.0); Mean Corpuscular Volume 88.7 fL (80-98); Mean Platelet Volume 9.1 fL (9.4-12.3); Monocytes Percent Auto 8.2 % (2-11); Neutrophils Absolute Auto 8.7 X10*3/uL (2.0-8.3); Neutrophils Percent Auto 71.9 % (45-73); Platelet Count 348 X10*3/uL (160-400); Red Blood Count 4.43 X10*6/uL (4.20-5.50); Red Cell Distribution Width 11.9 % (11.0-16.0); White Blood Count 12.1 X10*3/uL (4.8-10.8)
[2020-10-15 07:39] LABS: Blood Urea Nitrogen 18 mg/dL (9-16); Calcium 9.2 mg/dL (8.4-10.2); Creatinine Clr Calc Pharmacy 73.1; Estimated Glomerular Filt Rate > 60; Glucose Random 105 mg/dL (60-115)
[2020-10-15 07:55] LABS: Anion Gap 12 (12-20); Carbon Dioxide 28 mmol/L (22-29); Chloride 104 mmol/L (96-108); Potassium 4.1 mmol/L (3.3-5.1); Sodium 140 mmol/L (135-145)
[2020-10-15] MEDS: Baclofen 10 MG TABLET PO (08:15)
[2020-10-15] MEDS: HYDROmorphone HCl 1 MG/ML SYRINGE IVPUSH ×2 (08:36→13:02)
--- NOTE | 2020-10-15 08:47 | W.PM.OPN ---
Operative Note Operative Note Date of Service: 10/14/20 Narrative: Ms. Sarah Moncada is very pleasant 65 years old lady who was 3 months ago implanted with intrathecal drug delivery pain pump for the treatment of chronic pelvic pain syndrome after successful ITDD trial. After the implant she reported intractable pain in the projection of pump implantation site as well as insertion of the catheter site with radiation of pain alongside the lumbar and thoracic spine all the way to the area of approximately T5 thoracic vertebra and further radiation of the pain from there to the bilateral intercostal 4-5 distribution, sensation of the tightness of the chest and generalized all body weakness. Multiple complications were suspected with the patient clinical course, but lumbar spine CT, Thoraco- lumbar spine MRI, Lumbar and thoracic spine contrast myelography and SCF cultures failed to demonstrate any pathology. WBC was normal. She also reported that the function of the pump failed to demonstrate any benefits for her pelvic pain despite multiple opioids and non opioid drugs trailing in the pump. She continued to insist on the pump and the intrathecal catheter explantation. Postdural puncture headache as the complication of the IT catheter removal was explained several times to the patient however she continued to insist on explantation of the catheter. She came today into the operating room for explaintation of the system. She receved preoperatively antibiotics approximately 30 min before the procedure. After obtaining informed consent with all the risks of bleeding, infection, postdural puncture headache, and failure of the removal of the system to alleviate this patient's symptom patient was brought to the operating room, SHE was positioned supine on the stretcher, [place] [employer] monitors were applied and general endotracheal anesthesia was induced.. After that she was positioned prone on the operating table. All pressure poins were protected and padded. Care was taken to position properly the arms and the neck of the patient with foam supports. Time-out was performed delineating correct site, side, the nature of the procedure, patient's allergy, preoperative antibiotic . All operating room staff was participating in OR time-out procedure. The entire back of the patient was prepped with chloroprep enio and draped with fenestrated full body drape. location of the scar in the midline of the patient back was noted. 10 blade scalpel was used to make an incision alongside the previous scar. Scar tissue appeared to be very dense and rigid and the decision was made to excise the scar which was done using Liliana clamps and 10 blade scalpel. Upon excision of the scar the tissues were examined. No collections suspicious for infection or inflammation was found in the tissue. Therefore no cultures were sent. Thorough hemostats was performed and wound was widened and deepened until the anchoring device was seen. It was dissected from surrounding tissues and anchoring sutures were severed. The intrathecal catheter was slowly withdrawn from the wound until intact tip of the catheter was seen. The point of catheter insertion was coagulated with the electrocautery. The catheter was divided and intrathecal portion was sent for a culture examination. After that several interrupted ticron sutures and one purse string tikron suture (all 2-0) were applied to the area of the removal of the catheter.Thorough irrigation of the wound was performed using vancomycin containing irrigation. The wound was packed with vancomycin containing irrigation soaked ray techs. Attention was shifter to the pain pump implantation site. The incision was made with 10 blade scalpel alondside the previous scar. wound was widened and deepened until the body of the pump was found. No pathological discharge or pus was found in the area of the pump. The culture was not sent. the Pump was examined. 9 mls of intrathecal solution was withdrawn from the pump and discarded. OR personnel witnessed the fluid discard. The anchoring sutures were severed and the pump was removed with the remnant of the IT catheter. The pump pocket was irrigated with vancomycin containing solution and 7Fr WYATT drain was inserted into the wound and tunneled outside to the patient's skin at the lowest point of the pump pocket wound. the 2-0 nylon suture was used to suture the drain to the skin. After that both wounds were irrigated with vanco containing normal saline, 0-0 polisorb sutures were used to close both wounds, 2-0 sutures were used to approximate the skin and after that dominik were applied to the skin level. The suture lines were covered with bacitracin ointment and sterile dressings were applied. The patient was repositioned on the stretcher, awaken and extubated she was transfered to PACU in fair condition.
--- NOTE | 2020-10-15 10:20 | MHC.CM.PN ---
Lives alone in mobile home. Independent at baseline, reports she has had to use a walker recently due to increased pain. States she used to get MOW, but program on hold. Educated patient on other services available through [facility] including housework. Provided her with phone number for [facility], she will call and request assessment. Sister to drive home, anticipate no skilled needs on dc.
--- NOTE | 2020-10-15 12:26 | HO.PM.IMPN ---
Subjective Subjective Date of Service: 10/15/20 Interval History: Patient seen and examined at bedside Patient still reporting back pain and pelvic pain Patient also reported not able to walk due to significant pain Constitutional Constitutional: Denies weakness Cardiovascular Cardiovascular: Denies chest pain and Denies dyspnea Respiratory Respiratory: Denies dyspnea Gastrointestinal Gastrointestinal: Denies heartburn and Denies vomiting Musculoskeletal Musculoskeletal: Reports back pain Neurologic Neurologic: Denies weakness Physical Exam Vital Signs: Vital Signs: Last Vital Signs Temp 97.2 F 10/15/20 07:50 Pulse 77 10/15/20 10:40 Resp 18 10/15/20 07:50 BP 117/69 10/15/20 10:40 Pulse Ox 97 10/15/20 07:50 Body Mass Index 23.3 Const: General: comfortable and no acute distress Orientation/consciousness: patient oriented x3 Eyes: General: appearance normal, both eyes and all related structures Chest: Chest palpation & inspection: normal inspection of the chest Resp: Effort & Inspection: normal respiratory effort Cardio: Heart sounds: S1 normal heart sound present and S2 normal heart sound present GI: Inspection: Yes normal to inspection Back/Spine/Pelvis: Other: Status post intrathecal catheter removed drain in place with some serosanguineous discharge Skin: General skin exam: no rashes or lesions noted Neuro: General: patient oriented x3 Motor exam (neuro): 5/5 motor strength present throughout Objective Data Current Medications Generic Name Dose Route Start Last Admin Trade Name Freq PRN Reason Stop Dose Admin Acetaminophen 650 mg 10/14/20 18:08 10/15/20 03:02 Acetaminophen 325 Mg Tablet PO 650 mg Q6H PRN Administration Pain, Mild (Pain Scale 1-3) Baclofen 10 mg 10/14/20 15:00 10/15/20 08:15 Baclofen 10 Mg Tablet PO 10 mg TID JUDE Administration Docusate Sodium 100 mg 10/14/20 18:08 Docusate Sodium 100 Mg Capsule PO DAILY PRN Constipation Hydromorphone HCl 1 mg 10/14/20 18:20 10/15/20 08:36 Hydromorphone Hcl 1 Mg/Ml Syringe IVPUSH 1 mg Q4H PRN Administration Pain, Severe (Pain Scale 7-10) Ondansetron HCl 4 mg 10/14/20 18:08 Ondansetron Hcl 4 Mg/2 Ml Vial IVPUSH Q8H PRN Nausea and Vomiting Oxycodone HCl 5 mg 10/14/20 18:21 10/15/20 03:02 Oxycodone Hcl Immed Release 5 Mg Tablet PO 5 mg Q6H PRN Administration Pain, Severe (Pain Scale 7-10) Sodium Chloride 3 ml 10/15/20 00:00 10/15/20 08:06 0.9 % Sodium Chloride Flush 3 Ml Syringe IVFLUSH 3 ml QSHIFT JUDE Administration Zolpidem Tartrate 10 mg 10/14/20 18:22 10/14/20 21:43 Zolpidem Tartrate 5 Mg Tablet PO 10 mg BEDTIME PRN Administration Sleep Labs CBC & Chem 7: 10/15/20 06:41 10/15/20 06:41 Microbiology Microbiology Results: Microbiology 10/14/20 11:00 Surgery Gram Stain - Final 10/14/20 11:00 Surgery Routine Culture - Preliminary No growth to date. 10/14/20 11:00 Surgery Anaerobic Culture - Preliminary No growth to date. Assessment and Plan (1) Intractable pain: Status: Acute (2) Chronic pain syndrome: Status: Acute Assessment and Plan: 65-year-old female status post intrathecal pump removal today admitted for uncontrolled pain postprocedure, Intractable pain s/p intrathecal pump removal with drain in place headache still reporting back pain and difficulty walking due to pain Continue IV Dilaudid Continue p.o. pain medication Encourage caffeinated product Continue supportive care Zofran p.r.n. patient will need follow up with dr Reddy as outpatient PT evulation Insomnia Continue Ambien at at night DVT prophylax Venodyne
--- NOTE | 2020-10-15 13:13 | HO.POSTANES ---
Post Anesthesia Evaluation Post Anesthesia Evaluation Vital Signs: Vital Signs Temp Pulse Resp BP Pulse Ox 10/15/20 10:40 77 117/69 10/15/20 08:25 72 139/86 10/15/20 07:50 97.2 F 62 18 99/68 97 10/15/20 04:15 70 101/69 10/15/20 02:43 70 94/68 Anesthesia: General Endotracheal-GETA Mental Status: Awake Pain Control: Satisfactory Nausea/Vomiting: None Hydration: Adequate Anesthesia-Related Issues: No Anes. Related Issues
--- NOTE | 2020-10-15 15:36 | PC.NURSE ---
1405- Pt c/o agony pain. Dilaudid given at 1300 with no improvement. 10/10 pain. She states pain is in lower back and sides. Per patient oxycodone makes her feel sick, so does not want that. Dr. Zhu made aware. Order for Tylenol #3 placed. 1445- This RN went to give pt Tylenol #3, pt stated she does not want at this time. Pain is still 10/10, but wants dilaudid to wear off some before taking anything else. Pt states that she believes that the dilaudid is making her feel dizzy, weak, off . BP checked 86/52, pt readjusted in bed, sat up. BP improved to 110/76. Dr. Zhu updated. No new orders. Oncoming nurse made aware. Pt has no other complaints at this time.
[2020-10-15] MEDS: Zolpidem Tartrate 5 MG TABLET 10 MG PO (20:54)
[2020-10-16] VITALS: BP 92/56; PULSE 71; RESP 16; TEMP 36.5; O2SAT 95
[2020-10-16] MEDS: 0.9 % Sodium Chloride Flush 3 ML SYRINGE IVFLUSH ×2 (00:18→08:31)
[2020-10-16 07:41] VITALS: BP 101/70; PULSE 75; RESP 18; TEMP 36; O2SAT 94
[2020-10-16] MEDS: Acetaminophen 325 MG TABLET 650 MG PO (09:52)
--- NOTE | 2020-10-16 13:28 | PM.DS ---
DS: Providers Provider Date of Service: 10/16/20 Date of admission: 10/14/20 18:25 Primary care physician: Maritza Briseno MD Consults: 10/14/20 13:36 Consult to Hospitalist Stat Consulting Provider: Hospitalist Reason For Exam: postdural puncture headache, s/p explant of ITDD. DS: Diagnosis Discharge Diagnosis (1) Intractable pain: Status: Acute (2) Chronic pain syndrome: Status: Acute (3) Headache: Status: Acute DS: Medications Discharge Medications Home Medications: Previous Rx's Medication Instructions Recorded zolpidem 10 mg tablet 10 mg PO BEDTIME PRN 30 Days #1 tab 08/23/20 DS: Summary Hospital Course Hospital Course: The patient was admitted to the hospitalist services for headache post removal of her intrathecal drug delivery pain pump. She was treated with IV and oral narcotics with improvement in her chronic pain and resolution of her headache. She was evaluated by Physical therapy and deemed not to require any therapy at this time. Case was discussed with Dr. Reddy (pictures of what her wounds were sent to him via secure messaging system -- see pictures below) prior to discharge. He recommended dressing changes, prior to discharge which were completed by staff sonographer. The patient has been instructed to keep dressing in place and does not need to be changed until she is seen by Dr. Reddy in the office on 10/20/20. Time Spent with Patient Time attestation: Total time spent providing and/or coordinating discharge services: Discharge coordination time: Greater than 30 minutes Physical Exam Vital Signs: Vital Signs: Last Vital Signs Temp 96.8 F 10/16/20 07:41 Pulse 75 10/16/20 07:41 Resp 18 10/16/20 07:41 BP 101/70 10/16/20 07:41 Pulse Ox 94 10/16/20 07:41 Body Mass Index 23.3 Const: Other: General - no acute distress, appears comfortable Cardiovascular - regular rate and rhythm, S1-S2 Lungs - normal respiratory effort, clear to auscultation bilaterally, no wheezing Abdomen - soft, nontender, no rebound or guarding Extremities - no edema bilaterally Neuro - awake and alert, no focal deficits; Ambulating using walker which she has been at home as well. Skin: Other: DS: Data Data Completed and Pending Pending studies at discharge: Pending at discharge 10/14/20 11:32 Surgical [PTH] Routine Labs on day of discharge: Preliminary micro results at discharge 10/14/20 11:00 Anaerobic Culture - Preliminary Surgery No growth to date. Discharge Plan Discharge Patient Disposition: Home, Self-Care Referrals: Maritza Briseno MD [Primary Care Provider] - Discharge Medications: Continued zolpidem 10 mg tablet 10 mg PO BEDTIME PRN (Reason: insomnia) 30 Days Qty: 1 RF: 5 Diet: advance to usual diet Activity on Discharge: As tolerated Stand Alone Forms: Patient Portal Discharge page Care Plan Goals: To follow up with Dr. Reddy for further treatment Health Concerns: Chronic Pain Plan of Treatment: Follow up with Dr. Reddy Keep the dressing on your back until you have been seen by Dr. Reddy. Do not take a shower or get the dressing wet. Change your drain as you have been taught to do so. If you have any fevers, chills, worsening of your pain, numbness / weakness --please contact Dr. Reddy's office or return to the emergency room immediately.
--- NOTE | 2020-10-16 13:30 | PC.NURSE ---
Per Dr. Spivey dressing change for lower back as followed. Bacitracin to staple area with primapore dressing. 4x4 gauze surrounding WYATT drain w/ tape. Dressing changed today 10/16/20.
[2020-10-16] MEDS: Bacitracin Oint 14 GM TUBE 1 APPL TOPICAL (13:47)
--- NOTE | 2020-10-16 16:14 | MHC.CM.PN ---
PT DISCHARGED HOME TODAY WITH NO SERVICES
== END 2020-10-16 15:45 | disposition home or self-care (01) ==
LOC: HO.SSS 18:39 → HO.S3 18:39
PROVIDERS: Anesthesiology; Physician Assistant Medical; Admitting Provider Internal Medicine; PCP Internal Medicine; Visit Provider Family Medicine
DX: G89.4 Chronic pain syndrome (principal); N94.818 Other vulvodynia; M79.609 Pain in unspecified limb; T85.79XA Infection and inflammatory reaction due to other internal prosthetic devices, implants and grafts, initial encounter; T36.1X5A Adverse effect of cephalosporins and other beta-lactam antibiotics, initial encounter; R51.9 Headache, unspecified; Y82.8 Other medical devices associated with adverse incidents; Y92.530 Ambulatory surgery center as the place of occurrence of the external cause; Z87.891 Personal history of nicotine dependence; Z20.822 Contact with and (suspected) exposure to COVID-19; Z45.42 Encounter for adjustment and management of neurostimulator; Z46.89 Encounter for fitting and adjustment of other specified devices; Z79.899 Other long term (current) drug therapy
CPT/HCPCS: 62365; 36415; 80048; 85025; 87071; 87073; 87205; 87635; 88300; 97161; 99218; J0131; J0690; J1100; J1170; J2250; J2405; J3010; J3370

== ENCOUNTER → 2020-10-20 13:26 | Outpatient (BNVA) | payer MEDICARE, SELFPAY | PROVIDERS: PCP Internal Medicine; Visit Provider Anesthesiology | DX: G89.4 Chronic pain syndrome (principal); N94.818 Other vulvodynia; N94.819 Vulvodynia, unspecified; Z79.899 Other long term (current) drug therapy | CPT/HCPCS: 99212 ==

== ENCOUNTER → 2020-10-27 13:26 | Outpatient (BNVA) | payer MEDICARE, SELFPAY | PROVIDERS: PCP Internal Medicine; Visit Provider Anesthesiology | DX: N94.818 Other vulvodynia (principal); N94.819 Vulvodynia, unspecified; M79.609 Pain in unspecified limb; G89.4 Chronic pain syndrome; Z79.899 Other long term (current) drug therapy | CPT/HCPCS: 99212 ==

== ENCOUNTER → 2021-01-12 11:10 | Outpatient (BNVA) | payer MEDICARE, SELFPAY | PROVIDERS: PCP Internal Medicine; Visit Provider Anesthesiology | DX: N94.818 Other vulvodynia (principal); G89.4 Chronic pain syndrome; M79.609 Pain in unspecified limb; M47.816 Spondylosis without myelopathy or radiculopathy, lumbar region; M79.7 Fibromyalgia | CPT/HCPCS: 99212 ==

== ENCOUNTER 2021-02-01 12:04 | Outpatient (REF) | payer MEDICARE, SELFPAY ==
--- NOTE | ~2021-02-01 | MR_ITS ---
EXAMINATION: MR LUMBAR SPINE WITHOUT IV CONTRAST CLINICAL INFORMATION: Spondylosis without myelopathy or radiculopathy. COMPARISON: Lumbar spine CT 07/20/2020. TECHNIQUE: MRI of the lumbar spine was obtained using routine sequences without contrast. FINDINGS: There are 5 nonrib-bearing lumbar-type vertebral bodies. There is grade 1 degenerative anterolisthesis of L3 on L4 and to a lesser extent L2 on L3. Lumbar alignment is otherwise maintained. Vertebral body heights are preserved. Mild disc volume loss at L3-L4. There is no bone marrow edema. There are no acute fractures. Tarlov cysts at the S3 level of the sacrum. Small left renal cysts including a small proteinaceous or hemorrhagic cyst within the lower pole of the left kidney. L1-L2: Disc contour is normal. Mild bilateral facet arthropathy. No central canal stenosis and no foraminal stenosis. L2-L3: Slight grade 1 anterolisthesis. Moderate bilateral facet arthropathy and ligamentum flavum thickening. No central canal stenosis and no foraminal stenosis. L3-L4: There is grade 1 degenerative anterolisthesis. Severe bilateral facet arthropathy and ligamentum flavum thickening. Findings in concert result in mild central canal stenosis and mild bilateral foraminal encroachment. L4-L5: Diffuse annular disc bulge and severe bilateral facet arthropathy and ligamentum flavum thickening. There is a superimposed right lateral disc protrusion associated with an annular fissure that results in mild to moderate right foraminal stenosis and contacts the undersurface of the exiting right L4 nerve root. Mild left foraminal encroachment. L5-S1: Diffuse annular disc bulge and severe right and moderate left facet arthropathy. No central canal stenosis and no significant foraminal stenosis. MR/MR lumbar spine wo con IMPRESSION: - At L4-L5, a right lateral disc protrusion associated with an annular fissure results in mild to moderate right-sided foraminal stenosis and contacts the undersurface of the exiting right L4 nerve root. - At L3-L4, grade 1 degenerative anterolisthesis in the setting of severe bilateral facet arthropathy results in mild central canal stenosis. - At L2-L3, there is slight grade 1 degenerative anterolisthesis in the setting of moderate bilateral facet arthropathy. - Tarlov cysts at the S3 level of the sacrum.
--- NOTE | ~2021-02-01 | XR_ITS ---
EXAMINATION: LUMBAR SPINE CLINICAL INFORMATION: Removal of lumbar epidural implant. COMPARISON: None TECHNIQUE: 3 views. FINDINGS: There is normal lumbar lordosis. The vertebral heights and alignment is normal. There is grade 1 anterolisthesis L3 over L4 with loss of L3-L4 and L4-L5 disc heights. Rest the disc heights are normal. No visible fracture or lytic process seen. There is no radiopaque metallic foreign body implant seen at this time. XR/XR pre mri screening IMPRESSION: No radiopaque implants or foreign body seen. Grade 1 anterolisthesis L3 over L4 with degenerative disc changes L3-L4 and L4-L5 disc levels.
[2021-02-01 14:23] LABS: MANUAL DIFF FLAG NO
[2021-02-01 14:33] LABS: Basophils Percent Auto 0.5 % (0-2); Eosinophils Absolute Auto 0.1 X10*3/uL (0.0-0.4); Eosinophils Percent Auto 0.8 % (0-4); Hematocrit 40.2 % (37-47); Hemoglobin 13.4 g/dl (12.0-16.0); Imm Gran Abs Auto 0.01 X10*3/uL (0.00-0.03); Imm Gran Pct Auto 0.2 % (0.0-0.4); Lymphocytes Absolute Auto 2.2 X10*3/uL (1.2-4.9); Lymphocytes Percent Auto 34.9 % (20-40); Mean Corpuscular HGB Conc 33.3 g/dl (31.0-35.0); Mean Platelet Volume 9.7 fL (9.4-12.3); Monocytes Absolute Auto 0.5 X10*3/uL (0.1-1.2); Monocytes Percent Auto 8.4 % (2-11); Neutrophils Absolute Auto 3.6 X10*3/uL (2.0-8.3); Neutrophils Percent Auto 55.2 % (45-73); Platelet Count 338 X10*3/uL (160-400); Red Blood Count 4.62 X10*6/uL (4.20-5.50); Red Cell Distribution Width 11.9 % (11.0-16.0); White Blood Count 6.4 X10*3/uL (4.8-10.8)
[2021-02-01 14:48] LABS: Blood Urea Nitrogen 18 mg/dL (9-16); Estimated Glomerular Filt Rate > 60
== END 2021-02-01 12:05 | disposition home or self-care (01) ==
LOC: HO.MRI 12:04
PROVIDERS: Nurse Practitioner Family; Visit Provider Anesthesiology
DX: M47.816 Spondylosis without myelopathy or radiculopathy, lumbar region (principal)
CPT/HCPCS: 36415; 72148; 82565; 84520; 85025

== ENCOUNTER → 2021-02-16 13:30 | Outpatient (BNVA) | payer MEDICARE, SELFPAY | PROVIDERS: PCP Internal Medicine; Visit Provider Anesthesiology | DX: N94.818 Other vulvodynia (principal); G89.4 Chronic pain syndrome; M79.609 Pain in unspecified limb; M47.816 Spondylosis without myelopathy or radiculopathy, lumbar region; M79.7 Fibromyalgia | CPT/HCPCS: Q3014 ==